=== PATIENT | female | born 2000 | race Caucasian/White ===

== ENCOUNTER 2021-09-25 20:29 | Inpatient (IN) ==
[~2021-09-25 20:29] MED LIST: AMPICILLIN INJ 2,000 MG in SODIUM CHLORIDE 0.9% 100 ML IV ONE
[2021-09-25] MEDS ORDERED: BUTORPHANOL 2 MG/ML VIAL IV PRN (20:42)
[2021-09-25] MEDS ORDERED: MEPERIDINE 50 MG/1 ML VIAL IV PRN (20:42)
[2021-09-25] MEDS ORDERED: ONDANSETRON 4 MG/2 ML VIAL IV PRN (20:42)
[2021-09-25 21:10] LABS: Basophils % 0.3 % (0.0-0.8); Eosinophils % 0.2 % (0.00-10.9); Hematocrit 33.4 VOL% (35.7-47.0); Hemoglobin 10.8 GM/DL (12.0-16.0); Immature Granulocytes % 0.5 %; Immature Granulocytes Absolute 0.07 #; Lymphocytes # 1.8 10*3/uL (1.4-4.0); Mean Corpuscular HGB Conc 32.3 GM/DL (32-36); Mean Corpuscular Volume 82.3 FL (87-102); Mean Platelet Volume 12.6 FL (9.6-12.0); Monocytes % 5.9 % (1.7-12.7); Neutrophils % 81.1 % (38.7-73.9); Platelet Count 171 T/CUMM (130-400); Red Blood Count 4.06 MC/CUMM (3.8-5.5); Red Cell Distribution Width 12.7 % (9.3-17.3); White Blood Count 15.3 T/CUMM (4-12)
[2021-09-25 21:28] LABS: Bilirubin,Total 0.4 MG/DL (0.20-1.00); Calcium 8.7 MG/DL (8.5-10.1); Osmolality,Calculated 270.8 MOS/KG (273-304); Potassium 3.7 MMOL/L (3.5-5.1); Total Protein 7.2 G/DL (6.4-8.2)
[2021-09-26] MEDS ORDERED: AMPICILLIN INJ 2,000 MG in SODIUM CHLORIDE 0.9% 100 ML IV ONE
[2021-09-26] MEDS: LACTATED RINGERS 1,000 ML IV SCH (00:11)
[2021-09-26] MEDS: AMPICILLIN INJ 1,000 MG in SODIUM CHLORIDE 0.9% 100 ML IV SCH (04:38)
[2021-09-26] MEDS ORDERED: ZALEPLON 5 MG CAPSULE PO PRN (21:32)
[2021-09-27] MEDS ORDERED: NALOXONE 0.4 MG/ML VIAL IV PRN (00:01)
[2021-09-27] MEDS ORDERED: CITRIC ACID/SODIUM CITRATE 30 ML UDCUP PO ONE (00:01)
[2021-09-27] MEDS ORDERED: FAMOTIDINE 20 MG/2 ML VIAL IV ONE (00:01)
[2021-09-27] MEDS ORDERED: hydrOXYzine HCL 25 MG/1 ML VIAL IM PRN (00:01)
[2021-09-27] MEDS ORDERED: PROMETHAZINE 25 MG/1 ML VIAL IM ONE (00:01)
[2021-09-27] MEDS ORDERED: ePHEDrine 50 MG/ML VIAL IV PRN (00:01)
[2021-09-27] MEDS ORDERED: diphenhydrAMINE 50 MG/1 ML VIAL IV PRN ×2 (00:01)
[2021-09-27] MEDS ORDERED: LACTATED RINGERS 1,000 ML IV ONE (00:01)
[2021-09-27] MEDS: fentaNYL 2 MCG/ROPIV 0.2% EPID 100 ML EPIDURAL SCH ×3 (01:17→18:30)
[2021-09-27] MEDS: LACTATED RINGERS 1,000 ML IV SCH ×2 (01:26→18:29)
[2021-09-27] MEDS: AMPICILLIN INJ 1,000 MG in SODIUM CHLORIDE 0.9% 100 ML IV SCH ×4 (01:46→18:30)
[2021-09-27] MEDS: OXYTOCIN/LR 20 UNIT/1,000 ML BAG IV SCH ×2 (04:19→18:16)
[2021-09-27] MEDS ORDERED: LIDOCAINE 1% 50 ML VIAL ONE (11:10)
[2021-09-27] MEDS ORDERED: CARBOPROST TROMETHAMINE 250 MCG/ML AMP IM ONE (11:10)
[2021-09-27] MEDS ORDERED: METHYLERGONOVINE 0.2 MG/1 ML AMP ONE (11:10)
[2021-09-27] MEDS ORDERED: SODIUM CHLORIDE 0.9% 0 ML IV ONE (11:11)
[2021-09-27] MEDS ORDERED: TRANEXAMIC ACID 1,000 MG/10 ML VIAL ONE ×2 (11:11→12:40)
[2021-09-27 12:20] LABS: Cord Arterial Blood HCO3 16.5 MMOL/L
[2021-09-27 12:21] LABS: Cord Venous Blood HCO3 20.9 MMOL/L; Cord Venous Blood PO2 < 19.0 MMHG
[2021-09-27] MEDS ORDERED: BENZOCAINE 20%/MENTHOL 0.5% SPRAY 56 GM CAN TOP PRN (16:13)
[2021-09-27] MEDS ORDERED: oxyCODONE/ACETAMINOPHEN 5-325 MG TABLET PO PRN ×2 (16:13)
[2021-09-27] MEDS: IBUPROFEN 800 MG TABLET PO PRN ×2 (16:27→23:53)
[2021-09-27] MEDS: DOCUSATE SODIUM 100 MG CAPSULE PO SCH (20:57)
[2021-09-27] MEDS: oxyCODONE/ACETAMINOPHEN 5-325 MG TABLET PO PRN (21:58)
[2021-09-28 07:23] LABS: Basophils # 0.1 10*3/uL (0.0-0.2); Basophils % 0.3 % (0.0-0.8); Eosinophils % 0.1 % (0.00-10.9); Hematocrit 26.2 VOL% (35.7-47.0); Immature Granulocytes % 0.8 %; Immature Granulocytes Absolute 0.16 #; Lymphocytes # 2.6 10*3/uL (1.4-4.0); Lymphocytes % 13.3 % (21.3-54.2); Mean Corpuscular HGB Conc 32.1 GM/DL (32-36); Mean Corpuscular Volume 83.2 FL (87-102); Mean Platelet Volume 13.3 FL (9.6-12.0); Monocytes % 6.9 % (1.7-12.7); Neutrophils % 78.6 % (38.7-73.9); Red Cell Distribution Width 12.9 % (9.3-17.3); White Blood Count 19.4 T/CUMM (4-12)
[2021-09-28 07:29] LABS: Hemoglobin 8.4 GM/DL (12.0-16.0); Platelet Count 210 T/CUMM (130-400); Red Blood Count 3.15 MC/CUMM (3.8-5.5)
[2021-09-28 07:43] LABS: Hypochromasia 1+; Microcytosis 1+; Platelet Estimate Adequate
[2021-09-28] MEDS: DOCUSATE SODIUM 100 MG CAPSULE PO SCH ×3 (07:55→20:29)
[2021-09-28] MEDS: IRON (CARBONYL)/VIT C/B12/FA TABLET PO SCH (09:51)
[2021-09-28] MEDS: oxyCODONE/ACETAMINOPHEN 5-325 MG TABLET PO PRN (14:15)
[2021-09-28] MEDS: IBUPROFEN 800 MG TABLET PO PRN ×2 (14:16→20:30)
[2021-09-28] MEDS ORDERED: HYDROCORTISONE 2.5% RECTAL CREAM 30 GM TUBE TOP PRN (21:58)
[2021-09-28] MEDS ORDERED: WITCH HAZEL PADS 100/JAR TOP PRN (21:58)
[2021-09-29] MEDS: IBUPROFEN 800 MG TABLET PO PRN (03:35)
[2021-09-29] MEDS: DOCUSATE SODIUM 100 MG CAPSULE PO SCH (08:19)
[2021-09-29] MEDS: IRON (CARBONYL)/VIT C/B12/FA TABLET PO SCH (08:19)
[2021-09-29 08:58] VITALS: BP 109/62
== END 2021-09-29 11:45 | disposition home or self-care (01) | DRG 807 ==
LOC: N.LDOUT 20:29 → N.LD 20:36 → N.OB 09-27 10:10 → N.LD 09-27 10:14 → N.OB 09-27 16:07
PROVIDERS: ADMIT Specialist; ATTEND Specialist